=== PATIENT | female | born 1985 | race Two or more races ===

== ENCOUNTER 2018-07-06 18:54 | Emergency (ER) | payer OTHER ==
[2018-07-06] MEDS ORDERED: LORAZEPAM 1 MG TABLET PO ONE (19:41)
--- NOTE | 2018-07-06 19:50 | ER Document Report ---
ED General - General Chief Complaint: Shortness Of Breath Stated Complaint: DIFFICULTY BREATHING, HAND/LIP NUMBNESS Time Seen by Provider: 07/06/18 19:21 TRAVEL OUTSIDE OF THE [place] IN LAST 30 DAYS: No - HPI Notes: Patient is a 33-year-old female that presents to the emergency department for chief complaint of shortness of breath and cough. Patient reports 1 week of nonproductive cough. She denies any fevers or chills. She states she has been having episodes where she is having a difficult time breathing. She feels like she cannot catch her breath. She states this afternoon she had some numbness and tingling in her fingers and around her mouth. She also states she started to have some contractions in her hands. She denies history of anxiety or panic attacks in the past. Her episodes of shortness of breath last for about 1 hour and then completely resolved. She denies any associated chest pain. Past Medical History: Negative Past Surgical History: Negative Social History: Denies drugs alcohol and tobacco Family History: Reviewed and noncontributory for presenting illness Allergies: Reviewed, see documented allergy list. REVIEW OF SYSTEMS: CONSTITUTIONAL : No fever No chills No diaphoresis No recent illness EENT: No vision changes No congestion No sore throat CARDIOVASCULAR: No chest pain No palpitations RESPIRATORY: shortness of breath No cough No difficulty breathing GASTROINTESTINAL: No abdominal pain No nausea No vomiting No diarrhea GENITOURINARY: No dysuria No hematuria No difficulty urinating MUSCULOSKELETAL: No back pain No leg pain No arm pain SKIN: No rashes No lesions LYMPHATIC: No swollen, enlarged glands. NEUROLOGICAL: No lightheadedness No headache No weakness paresthesias PSYCHIATRIC: No anxiety No depression PHYSICAL EXAMINATION: Vital signs reviewed, nursing noted reviewed. GENERAL: Well-appearing, well-nourished and in no acute distress. HEAD: Atraumatic, normocephalic. EYES: Eyes appear normal, extraocular movements intact, sclera anicteric, conjunctiva are normal. ENT: nares patent, oropharynx clear without exudates. Moist mucous membranes. NECK: Normal range of motion, supple without lymphadenopathy LUNGS: Tachypneic. Breath sounds clear to auscultation bilaterally and equal. No wheezes rales or rhonchi. HEART: Regular rate and rhythm without murmurs ABDOMEN: Soft, nontender, normoactive bowel sounds. No rebound, guarding, or rigidity. No masses appreciated. EXTREMITIES: Nontender, good range of motion, no pitting or edema. NEUROLOGICAL: No focal neurological deficits. Moves all extremities spontaneously Motor and sensory grossly intact on exam. PSYCH: tearful, anxious, rapid pressured speech SKIN: Warm, Dry, normal turgor, no rashes or lesions noted on exposed skin - Related Data Allergies/Adverse Reactions: adhesive Allergy (Verified 07/06/18 19:17) latex Allergy (Verified 07/06/18 19:17) Past Medical History - Social History Smoking Status: Never Smoker Chew tobacco use (# tins/day): No Frequency of alcohol use: Occasional Drug Abuse: None Family History: Reviewed & Not Pertinent Patient has suicidal ideation: No Patient has homicidal ideation: No Renal/ Medical History: Denies: Hx Peritoneal Dialysis Review of Systems - Review of Systems Notes: Dictated Physical Exam - Vital signs Vitals: Temp Pulse Resp BP Pulse Ox 98.0 F 85 20 120/82 100 07/06/18 18:59 07/06/18 18:59 07/06/18 18:59 07/06/18 18:59 07/06/18 18:59 - Notes Notes: Dictated Course - Re-evaluation Re-evalutation: 07/06/18 19:50 Vitals reviewed. Nursing notes reviewed. Patient is tearful and appears very anxious. She was given Ativan for her anxiety. Patient is not having any chest pain and I do not suspect ACS or dysrhythmia. Chest x-ray was obtained to evaluate for underlying pneumonia because of her cough. 07/06/18 20:34 Patient reevaluated after Ativan and is having significant improvement of her symptoms. She no longer feels short of breath. Her chest x-ray is negative for acute process including pneumonia or pneumothorax. Patient will be given Vistaril for her symptoms at home. She was encouraged to talk to her primary care provider if her anxiety and panic attacks continue. She will return to the emergency room for any new or worsening symptoms or if her shortness of breath becomes constant and is not resolving. Chest X-Ray 07/06/18 19:41 IMPRESSION: NO ACUTE RADIOGRAPHIC FINDING IN THE CHEST. - Vital Signs Vital signs: Temp Pulse Resp BP Pulse Ox 98.0 F 78 18 91/55 L 98 07/06/18 18:59 07/06/18 20:31 07/06/18 20:31 07/06/18 20:31 07/06/18 20:31 Discharge - Discharge Clinical Impression: Shortness of breath, Cough Condition: Stable Disposition: HOME, SELF-CARE Instructions: Panic Attack ([facility]), Upper Respiratory Illness ([facility]) Additional Instructions: Please return to the emergency department if you have any worsening, or concern of your symptoms. Please return to the emergency department if you develop chest pain, difficulty breathing, severe abdominal pain, or ongoing vomiting. Please follow-up with your primary care physician in 2-3 days and any other recommended physicians. If prescribed, take all medications as directed. If you have any questions or concerns do not hesitate to return the emergency department for evaluation. [] Prescriptions: Hydroxyzine Pamoate [Vistaril] 50 mg PO Q6 PRN #20 capsule PRN Reason: Anxiety
--- NOTE | 2018-07-06 20:25 | RADIOLOGY REPORT (SQ) ---
EXAM DESCRIPTION: CHEST SINGLE VIEW COMPLETED DATE/TIME: 07/06/2018 7:59 pm REASON FOR STUDY: cough COMPARISON: None. EXAM PARAMETERS: NUMBER OF VIEWS: One view. TECHNIQUE: Single frontal radiographic view of the chest acquired. RADIATION DOSE: NA LIMITATIONS: None. FINDINGS: LUNGS AND PLEURA: No opacities, masses or pneumothorax. No pleural effusion. MEDIASTINUM AND HILAR STRUCTURES: No masses. Contour normal. HEART AND VASCULAR STRUCTURES: Heart normal in size. Normal vasculature. BONES: No acute findings. HARDWARE: None in the chest. OTHER: No other significant finding. IMPRESSION: NO ACUTE RADIOGRAPHIC FINDING IN THE CHEST. TECHNICAL DOCUMENTATION: JOB ID: [id number] [employer]- All Rights Reserved Reading location - IP/workstation name: [email or web address]
[2018-07-06 20:34] VITALS: BP 91/55
== END 2018-07-06 20:35 | disposition home or self-care (01) ==
LOC: ER 18:54
DX: F41.9 Anxiety disorder, unspecified (principal); F41.0 Panic disorder [episodic paroxysmal anxiety]; R05 Cough; R06.02 Shortness of breath; R20.2 Paresthesia of skin; M24.542 Contracture, left hand; M24.541 Contracture, right hand; Z91.040 Latex allergy status; Z91.048 Other nonmedicinal substance allergy status
CPT/HCPCS: 71045; 99285